=== PATIENT | male | born 1990 | race Two or more races ===

== ENCOUNTER 2018-06-23 07:25 | Emergency (ER) | payer MEDICAID ==
[~2018-06-23] VITALS: Ht 170.2 cm; Wt 144.9 kg
[~2018-06-23 07:25] MED LIST: ibuprofen PO
[2018-06-23 07:32] VITALS: Ht 170.2 cm; Wt 144.9 kg
[2018-06-23 08:12] LABS: BASOPHIL % 0.1 % (0-2); PLATELET COUNT 224 x10^3mcL (130-400); RED CELL DISTRIBUTION WIDTH 14.6 % (11.5-14.5)
[2018-06-23 08:22] LABS: CARBON DIOXIDE 24.9 mmol/L (21-32); CHLORIDE SERUM 100 mmol/L (98-107); GFR1 > 60 mL/min; GLUCOSE SERUM 122 mg/dL (74-106); POTASSIUM SERUM 3.7 mmol/L (3.5-5.1); SODIUM SERUM 136 mmol/L (136-145)
[2018-06-23 08:27] LABS: ALKALINE PHOSPHATASE 76 U/L (46-116); ALT/SGPT 31 U/L (16-63); AST/SGOT 19 U/L (15-37)
[2018-06-23 08:29] LABS: TOTAL PROTEIN, SERUM 8.6 g/dL (6.4-8.2)
[2018-06-23 09:52] LABS: microscopic required? YES; urine erythrocyte TRACE (NEGATIVE)
[2018-06-23 09:55] VITALS: BP 172/110
== END 2018-06-23 09:55 | disposition home or self-care (01) ==
LOC: ED 07:25
PROVIDERS: Emergency Medicine
PROC: 3E03329 Introduction of Other Anti-infective into Peripheral Vein, Percutaneous Approach (ICD-10-PCS; principal; 2018-06-23)
PROC: 3E033GC Introduction of Other Therapeutic Substance into Peripheral Vein, Percutaneous Approach (ICD-10-PCS; 2018-06-23)
PROC: B54BZZZ Ultrasonography of Right Lower Extremity Veins (ICD-10-PCS; 2018-06-23)
DX: L03.115 Cellulitis of right lower limb (principal); I10 Essential (primary) hypertension
CPT/HCPCS: J0295; J3010; J3490; Q0092

== ENCOUNTER 2019-02-17 07:40 | Emergency (ER) | payer OTHER ==
[~2019-02-17] VITALS: Ht 177.8 cm; Wt 156.5 kg
[2019-02-17 07:52] VITALS: Ht 177.8 cm; Wt 156.5 kg
[2019-02-17 08:51] LABS: PLATELET COUNT 265 x10^3mcL (130-400)
[2019-02-17 08:55] LABS: BASOPHIL % 0 % (0-2); RED CELL DISTRIBUTION WIDTH 14.9 % (11.5-14.5)
[2019-02-17 09:35] LABS: CALCIUM 9.2 mg/dL (8.5-10.1); CARBON DIOXIDE 30.1 mmol/L (21-32); CHLORIDE SERUM 100 mmol/L (98-107); CREATININE SERUM 0.9 mg/dL (0.7-1.3); GFR1 > 60 mL/min; GLUCOSE SERUM 126 mg/dL (74-106); POTASSIUM SERUM 4.1 mmol/L (3.5-5.1); SODIUM SERUM 141 mmol/L (136-145)
[2019-02-17 09:39] LABS: ALBUMIN 4.4 g/dL (3.4-5.0); ALKALINE PHOSPHATASE 78 U/L (46-116); ALT/SGPT 50 U/L (16-63); AST/SGOT 23 U/L (15-37); LIPASE 160 IU/L (73-393); TOTAL PROTEIN, SERUM 8.2 g/dL (6.4-8.2)
[2019-02-17 12:17] VITALS: BP 147/102
== END 2019-02-17 12:17 | disposition home or self-care (01) ==
LOC: ED 07:40
PROVIDERS: Emergency Medicine
DX: R10.812 Left upper quadrant abdominal tenderness (principal); R11.0 Nausea; I10 Essential (primary) hypertension
CPT/HCPCS: J1885; J2270; J2405; J7030